=== PATIENT | male | born 1990 | race African-American/Black ===

== ENCOUNTER 2022-11-17 04:17 | Emergency (ER) | payer SELFPAY ==
[2022-11-17 04:27] VITALS: BP 140/94; PULSE 77; RESP 18; TEMP 36.6; O2SAT 97; BMI 22.6
--- NOTE | 2022-11-17 04:30 | ED_ITS ---
HPI - General Adult General Chief complaint: Ear/Nose/Throat Problem Stated complaint: congested, allergies Time Seen by Provider: 11/17/22 04:21 Limitations: language barrier History of Present Illness HPI narrative: 2d congestion, itchy red eyes, coughing, sneezing and occasional sweating. has tried ibuprofen . states he thinks this is his allergies acting up. says Arjun usually gives him something that helps relieve this but doesnt know what it is. 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 No fever. He is trying ibuprofen. Seems to indicate that allergies are acting up. Further that he often gets unspecified medication from other clinic, appears to be indicating that it is a pill, that tends to relieve these symptoms. Assuming these have been prior diagnosed as allergies per what he is telling me, I asked more about potential successful treatment in the past. Says the nasal spray does not work though it is unclear to me what sort of nasal spray this actually is. Visit is challenged a bit by language barrier but he has declined telesales specialist. No fever Related Data Previous Rx's Medication Instructions Recorded loratadine 10 mg tablet 10 mg PO DAILY PRN allergic 11/17/22 symptoms #30 tabs Allergies Allergy/AdvReac Type Severity Reaction Status Date / Time amoxicillin AdvReac rash Verified 11/17/22 04:32 cefdinir AdvReac Hives Verified 11/17/22 04:32 clarithromycin AdvReac Rash Verified 11/17/22 04:32 Review of Systems Status of ROS: Reports: 6 or more systems reviewed and unremarkable except as noted in History and below [facility] Medical History History of Helicobacter pylori infection ?Z86.19 - Personal history of other infectious and parasitic diseases (ICD- 10) Social History Smoking Status: Current some day smoker Do you use any of these nicotine containing products: Vaping Products How often do you have a drink containing alcohol: never AUDIT-C Alcohol total score: 0 Non-prescribed substance use: denies use Exam Narrative: Exam Narrative: Congested nasopharynx otherwise breathing easily. NAD just appears uncomfortable. Eyes are watering sclera little injected bilaterally. Lungs are clear. TMs clear. Oropharynx is faintly erythematous neck is supple without lymphadenopathy. Heart in regular rate and rhythm. Skin is warm and dry without rash. Facial swelling or erythema or tenderness. Const: Vital Signs, click to edit/add: Vital Signs - 24 hr 11/17/22 04:27 Temperature 97.9 F Pulse Rate [Left P ulse Oximeter] 77 Respiratory Rate 18 Blood Pressure [Ri ght Upper Arm] 140/94 H Pulse Oximetry 97 Oxygen Delivery Me thod Room Air Documenting provider has reviewed patient's vital signs: yes Course Vital Signs Vital signs: Initial Vital Signs Temperature 97.9 F 11/17/22 04:27 Temperature Source Temporal Artery Scan 11/17/22 04:27 Pulse Rate 77 11/17/22 04:27 Respiratory Rate 18 11/17/22 04:27 Blood Pressure 140/94 H 11/17/22 04:27 Blood Pressure Mean 109 H 11/17/22 04:27 Blood Pressure Position Sitting 11/17/22 04:27 Pulse Oximetry 97 11/17/22 04:27 Oxygen Delivery Method Room Air 11/17/22 04:27 Vital Signs Temperature 97.9 F 11/17/22 04:27 Pulse Rate 77 11/17/22 04:27 Respiratory Rate 18 11/17/22 04:27 Blood Pressure 140/94 H 11/17/22 04:27 Pulse Oximetry 97 11/17/22 04:27 Oxygen Delivery Method Room Air 11/17/22 04:27 Temperature 97.9 F 11/17/22 04:27 Pulse Rate 77 11/17/22 04:27 Respiratory Rate 18 11/17/22 04:27 Blood Pressure 140/94 H 11/17/22 04:27 Pulse Oximetry 97 11/17/22 04:27 Oxygen Delivery Method Room Air 11/17/22 04:27 Medical Decision Making MDM Narrative Medical decision making narrative: I have attempted to locate records. Looks to have been given long-acting antihistamine before. Could be viral URI/head cold. Given his familiarity with these symptoms and degree of injection I am seeing with his eyes I think probably more likely this is allergic. Regardless we can treat him symptomatically. Was dispensed oxymetazoline here in the ER along with pseudoephedrine and a tablet of loratadine. See extensive patient discharge plan Medical Records Medical records reviewed: Yes I reviewed the patient's medical records Discharge Plan Discharge Clinical Impression: Environmental allergies Patient Disposition: Home, Self-Care Condition: Stable Additional Instructions: Important to stay well hydrated with water. You might try daily nasal saline rinses with a Neti pot. Important to use tepid/warm water with only a small amount of salt and tip your head forward not back. There are directions for all of this in the package. Anymore most of the medications that you need to treat allergies are available [id number]. Since your symptoms affect your nose and your eyes and throat and sinuses, often nasal steroid sprays like Flonase, Nasonex, Rhinocort are helpful. You told me you do not think these work. It is important to take these for 2 weeks before you think you might have trouble with allergies and then during the course of your allergy season. It looks like you may have received loratadine in the past. This is an antihistamine pill that can help generally with allergy symptoms. This is available to purchase [id number]. You might combined this with pseudoephedrine for further decongestion. I like the 12 hour pseudoephedrine. 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 If all of this fails, you can try different versions of the same sort of medication also available [id number]. Or go to something like prednisone, a steroid, which is available by prescription as a potent anti-inflammatory. Sometimes instead people will get a long-acting steroid shot when allergies are very bad. Today we gave you 1 tablet of loratadine, pseudoephedrine and Afrin (oxymetazoline) nasal spray. This spray is not a steroid but instead a decongestant. Do not use this for more than 5 days at a time as if you use it too long you can get worse congestion. After a break, perhaps a few days to a week, can use it again. Prescriptions: New loratadine 10 mg tablet 10 mg PO DAILY PRN (Reason: allergic symptoms) Qty: 30 0RF Stand Alone Forms: [employer] Info Instructions
[2022-11-17] MEDS: PSEUDOEPHEDRINE HCL 30 MG TABLET 60 MG PO (05:18)
[2022-11-17] MEDS: OXYMETAZOLINE 0.05% NASAL SPRAY 1 SPRAY NOSTRIL-B (05:18)
[2022-11-17] MEDS: LORATADINE 10 MG TABLET PO (05:18)
== END 2022-11-17 05:20 | disposition home or self-care (01) ==
PROVIDERS: Emergency Provider Family Medicine
DX: J30.89 Other allergic rhinitis (principal)
CPT/HCPCS: 99283; 99284; A9270